=== PATIENT | female | born 1960 | race Caucasian/White ===

== ENCOUNTER 2022-07-15 01:17 | Emergency (ER) | payer SELFPAY ==
[~2022-07-15] VITALS: Ht 162.6 cm; Wt 114.0 kg
[2022-07-15] MEDS ORDERED: ONDANSETRON HCL 4MG/2ML INJ IV STA (02:35)
[2022-07-15] MEDS ORDERED: MORPHINE SULFATE 4 MG/ML CPJ (NOT FOR IM USE) IV STA (02:35)
[2022-07-15 02:44] LABS: BASOPHILS % 0.4 % (0.0-2.0); EOSINOPHILS % 1.4 % (0.0-5.0); HEMATOCRIT. 35.6 % (36.0-48.0); HEMOGLOBIN. 12.1 g/dL (12.0-16.0); MEAN PLATELET VOLUME 8.2 fl (7.4-10.4); MONOCYTES % 5.4 % (2.0-8.0); NEUTROPHILS % 81.8 % (40.0-76.0); PLATELET 175 x1000/uL (130-400); RED BLOOD CELL COUNT 4.04 mill/uL (4.2-5.4); RED CELL DISTRIBUTION WIDTH 13.6 % (11.6-14.6)
[2022-07-15 02:49] LABS: CHLORIDE 106 mEq/L (98-107)
[2022-07-15 04:11] LABS: CLARITY URINE CLOUDY (CLEAR); COLOR URINE YELLOW (YELLOW); KETONES URINE NEGATIVE (NEGATIVE); LEUKOCYTE ESTERASE URINE 2+ (NEGATIVE); NITRITE URINE POSITIVE (NEGATIVE); OCCULT BLOOD URINE NEGATIVE (NEGATIVE); PH URINE 6.5 (4.5-8.0); PROTEIN URINE 1+ (NEGATIVE); SPECIFIC GRAVITY URINE 1.009 (1.005-1.030)
[2022-07-15] MEDS ORDERED: CEPH500C2 MT (06:00)
[2022-07-15] MEDS ORDERED: CEFTRIAXONE SODIUM 1 G/VIAL IM ONE (06:00)
[2022-07-15] MEDS ORDERED: ACET-2708 MT (06:00)
[2022-07-15 06:50] VITALS: BP 158/88
== END 2022-07-15 07:06 | disposition home or self-care (01) ==
LOC: ER 01:17
DX: N39.0 Urinary tract infection, site not specified (principal); K80.20 Calculus of gallbladder without cholecystitis without obstruction; E11.9 Type 2 diabetes mellitus without complications
CPT/HCPCS: 36415; 74176; 80053; 81003; 82962; 83690; 85025; 87077; 87086; 87186; 96372; 96374; 96375; 99284; J0696; J2270; J2405